=== PATIENT | male | born 1980 | race Caucasian/White ===

== ENCOUNTER 2022-01-28 15:09 | Emergency (ER) | payer OTHER ==
[2022-01-28 15:51] LABS: BASOPHIL 0.7 % (0-2); EOSINOPHIL 0.9 % (0-5); HCT 45.6 % (42.0-52.0); HGB 15.9 g/dl (13.2-18.0); LYMPHOCYTE 17.9 % (15-48); MCH 31.2 pg (25.0-31.0); MCHC 34.9 g/dL (32.0-36.0); MCV 89.4 fL (78.0-100.0); MONOCYTE 5.4 % (0-12); MPV 9.7 fL (6.0-9.5); NEUTROPHIL 74.6 % (41-80); NRBC 0; PLT 315 K/uL (150-400); RDW 12.4 % (11.5-14.0); WBC 14.7 K/uL (4.0-10.5)
[2022-01-28 16:07] LABS: BILIRUBIN - TOTAL 0.6 mg/dL (0.2-1.0); BUN/CREAT RATIO (CALC) 10.5 RATIO; CREATININE 1.05 mg/dL (0.67-1.17); GLOBULIN (CALCULATION) 3.7 g/dL; TOTAL PROTEIN 7.7 g/dL (6.4-8.2)
[2022-01-28 18:02] LABS: BILIRUBIN NEGATIVE (NEGATIVE); BLOOD 3+ Ery/uL (NEGATIVE); CLARITY CLEAR (CLEAR); COLOR YELLOW (YELLOW); GLUCOSE (U) NORMAL (NORMAL); LEUKOCYTES 1+ Leu/uL (NEGATIVE); NITRITE NEGATIVE (NEGATIVE); PROTEIN NEGATIVE (NEGATIVE); SPECIFIC GRAVITY 1.025 (1.001-1.030); UROBILINOGEN 0.2 mg/dL (0.2-1.0)
[2022-01-28 18:06] LABS: ECSTASY (MDMA) POSITIVE (NEGATIVE); MARIJUANA (THC) POSITIVE (NEGATIVE); METHADONE NEGATIVE (NEGATIVE); OPIATES POSITIVE (NEGATIVE)
[2022-01-28 18:07] LABS: AMPHETAMINES POSITIVE (NEGATIVE); BARBITURATES NEGATIVE (NEGATIVE); OXYCODONE NEGATIVE (NEGATIVE)
[2022-01-28 18:09] LABS: BACTERIA 1+; URINARY RBC 20-50
[2022-01-28 18:10] LABS: MUCOUS MODERATE
[2022-01-28] MEDS ORDERED: CEPHALEXIN500 MG PO (19:05)
[2022-01-28] MEDS ORDERED: HYDROCODON-ACE1 EAC2 PO (20:41)
[2022-01-28] MEDS ORDERED: FLOMAX0.4 MG PO (20:41)
[2022-01-28] MEDS ORDERED: PHENERGAN25 M1 PO (20:41)
== END 2022-01-28 21:05 | disposition home or self-care (01) ==
LOC: FER 15:09
PROVIDERS: Emergency Medicine
DX: N13.2 Hydronephrosis with renal and ureteral calculous obstruction (principal); I10 Essential (primary) hypertension; F17.200 Nicotine dependence, unspecified, uncomplicated; Z28.310 Unvaccinated for COVID-19
CPT/HCPCS: 36415; 80053; 80305; 81001; 85025; J1170; J1885; J3010; J7030